=== PATIENT | male | born 1990 | race Caucasian/White ===

== ENCOUNTER 2019-11-10 05:56 | Day surgery (SDC) | payer MEDICAID ==
[~2019-11-10] VITALS: Ht 165.1 cm; Wt 66.7 kg
[2019-11-10 06:49] LABS: BASOPHILS % (AUTO) 0.5 % (0.0-2.0); EOSINOPHILS # (AUTO) 0.2 K/uL (0-0.4); EOSINOPHILS % (AUTO) 2.3 % (0.0-4.0); HEMATOCRIT 47.9 % (36-52); LYMPHOCYTES # (AUTO) 2.1 K/uL (2.0-11.5); LYMPHOCYTES % (AUTO) 30.1 % (20.5-51.1); MEAN CORPUSCULAR HEMOGLOBIN 28 pg (27-31); MEAN CORPUSCULAR HGB CONC 33 g/dL (33-37); MONOCYTES # (AUTO) 0.5 K/uL (0.8-1.0); MONOCYTES % (AUTO) 7.9 % (1.7-9.3); NEUTROPHILS % (AUTO) 59.2 % (42.2-75.2); PLATELET COUNT (AUTO) 182 K/uL (140-450); RED BLOOD CELL COUNT(AUTO) 5.69 MIL/uL (4.20-6.10); RED CELL DISTRIBUTION WIDTH 14.3 % (11.6-13.7); WHITE BLOOD COUNT (AUTO) 6.8 K/uL (4.8-10.8)
[2019-11-10] MEDS ORDERED: BUPIVACAINE-MPF 0.25% 30 ML VIAL INJ ONE (07:12)
[2019-11-10] MEDS ORDERED: DEXAMETHASONE 4 MG/ML VIAL ONE (07:23)
[2019-11-10] MEDS ORDERED: ROCURONIUM 50 MG/5 ML VIAL IV ONE (07:23)
[2019-11-10] MEDS ORDERED: fentaNYL 0.05 MG/ML VIAL ONE (07:23)
[2019-11-10] MEDS ORDERED: DESFLURANE 240 ML BTL INH ONE (07:23)
[2019-11-10] MEDS ORDERED: GLYCOPYRROLATE 0.2 MG/ML VIAL ONE (07:23)
[2019-11-10] MEDS ORDERED: PROPOFOL 200 MG/20 ML VIAL IV ONE (07:23)
[2019-11-10] MEDS ORDERED: NEOSTIGMINE 1:1000 10 MG/10 ML VIAL ONE (07:23)
[2019-11-10] MEDS ORDERED: ONDANSETRON 4 MG/2 ML VIAL ONE (07:23)
[2019-11-10] MEDS ORDERED: MIDAZOLAM 2 MG/2 ML VIAL ONE (07:23)
[2019-11-10 07:33] LABS: ALBUMIN 3.8 g/dL (3.4-5.0); ANION GAP 15.5 (8-16); CARBON DIOXIDE 25.5 mmol/L (21-32); CREATININE 1.1 mg/dL (0.6-1.3); TOTAL BILIRUBIN 0.3 mg/dL (0.0-1.0)
[2019-11-10] MEDS ORDERED: LACTATED RINGERS 1,000 ML IV SCH (07:59)
[2019-11-10] MEDS ORDERED: HYDROmorphone 1 MG/ML AMP IVP PRN ×2 (08:00→08:50)
[2019-11-10] MEDS ORDERED: ONDANSETRON 4 MG/2 ML VIAL IVP PRN ×2 (08:00→08:50)
[2019-11-10] MEDS ORDERED: MEPERIDINE 25 MG/ML SYR IVP PRN (08:00)
[2019-11-10] MEDS ORDERED: MORPHINE SULFATE 4 MG/ML SYR IV PRN (08:50)
[2019-11-10] MEDS ORDERED: HYDROcodone/APAP 5/325 MG 1 TAB TAB PO PRN (08:50)
[2019-11-10] MEDS ORDERED: ACETAMINOPHEN 325 MG TAB PO PRN (08:50)
[2019-11-10] MEDS ORDERED: MORPHINE SULFATE 2 MG/ML SYR IVP PRN (08:50)
[2019-11-10] MEDS ORDERED: HYDROmorphone PFS 2 MG/ML SYR ONE (09:35)
== END 2019-11-10 11:00 | disposition home or self-care (01) ==
LOC: MDS 05:56 → MMU 05:58 → MDS 11:00
PROVIDERS: ATTEND Surgery
DX: K80.10 Calculus of gallbladder with chronic cholecystitis without obstruction (principal)
CPT/HCPCS: 36415; 47562; 71045; 80053; 82374; 85025; 86886; 86900; 86901; 88304; J0690; J1100; J1170; J2250; J2405; J2704; J2710; J3010; J3490; J7030; J7060; J7120; Q0092